=== PATIENT | female | born 1965 | race Caucasian/White ===

== ENCOUNTER 2017-03-16 05:31 | Emergency (ER) | payer OTHER ==
[2017-03-16 06:31] LABS: BASOPHIL 1.1 % (0-2); HCT 39.4 % (37.0-47.0); HGB 13.6 g/dl (12.5-16.0); LYMPHOCYTE 49.7 % (15-48); MCH 28.3 pg (25.0-31.0); MCHC 34.5 g/dL (32.0-36.0); MCV 82.1 fL (78.0-100.0); MONOCYTE 9.5 % (0-12); MPV 10.2 fL (6.0-9.5); NEUTROPHIL 37.7 % (41-80); PLT 224 K/uL (150-400); RDW 13.3 % (11.5-14.0); WBC 4.5 K/uL (4.0-10.5)
[2017-03-16 06:52] LABS: CREATININE 0.8 mg/dL (0.5-1.0); POTASSIUM 3.9 mmol/L (3.5-5.1)
== END 2017-03-16 07:28 | disposition home or self-care (01) ==
LOC: FER 05:31
PROVIDERS: Emergency Medicine
DX: R06.4 Hyperventilation (principal)
CPT/HCPCS: 36415; 71020; 80048; 85025; 85379; 93005